=== PATIENT | male | born 1965 | race American Indian/Alaskan Native ===

== ENCOUNTER 2017-08-25 18:46 | Emergency (ER) | payer SELFPAY ==
[2017-08-25 22:33] VITALS: BP 105/69
[2017-08-26] MEDS ORDERED: NORCO 5/325 PO ONE (00:10)
[2017-08-26] MEDS ORDERED: NORCO 5/325 ONE (00:10)
--- NOTE | 2017-08-26 00:28 | Emergency Department Report ---
ED ENT HPI - General Chief complaint: Dental/Oral Stated complaint: MOUTH SWOLLEN/PAIN Time Seen by Provider: 08/26/17 00:23 Source: patient Mode of arrival: Ambulatory Limitations: No Limitations - History of Present Illness Initial comments: 51-year-old -Polish male comes in complaining about having dental pain with right facial swelling for 4 days. Patient denies any drooling. He reports he is taking Aleve which she reports has helped but he ran out of Aleve. Patient denies any fever chills no nausea no vomiting. Patient reports that he has no dentist at this time. He reports he is aware that he has some bad teeth in his mouth. He isn't currently has no allergies to medicines dictation takes no medications on a daily basis. MD complaint: tooth pain -: days(s) (4) Location: tooth # (3) Severity: severe Severity scale (0 -10): 8 Quality: aching, other (throbby) Consistency: constant Improves with: NSAID Worsens with: eating Context- Dental: history of dental caries, poor dental care Associated Symptoms: gum swelling, toothache - Related Data Previous Rx's Medication Instructions Recorded Last Taken Type Chlorhexidine Mouthwash [Peridex] 3 ml MM BID #1 bottle 08/26/17 Unknown Rx Naproxen [EC-Naprosyn] 500 mg PO BID #30 tablet. 08/26/17 Unknown Rx Penicillin Vk [Veetids TAB] 250 mg PO QID #40 tablet 08/26/17 Unknown Rx Allergies Allergy/AdvReac Type Severity Reaction Status Date / Time No Known Allergies Allergy Verified 08/26/17 00:23 ED Dental HPI - General Chief complaint: Dental/Oral Stated complaint: MOUTH SWOLLEN/PAIN Time Seen by Provider: 08/26/17 00:23 Source: patient Mode of arrival: Ambulatory Limitations: No Limitations - Related Data Previous Rx's Medication Instructions Recorded Last Taken Type Chlorhexidine Mouthwash [Peridex] 3 ml MM BID #1 bottle 08/26/17 Unknown Rx Naproxen [EC-Naprosyn] 500 mg PO BID #30 tablet. 08/26/17 Unknown Rx Penicillin Vk [Veetids TAB] 250 mg PO QID #40 tablet 08/26/17 Unknown Rx Allergies Allergy/AdvReac Type Severity Reaction Status Date / Time No Known Allergies Allergy Verified 08/26/17 00:23 ED Review of Systems ROS: Stated complaint: MOUTH SWOLLEN/PAIN Other details as noted in HPI ENT: dental pain ED Past Medical Hx - Past Medical History Previous Medical History?: No - Surgical History Past Surgical History?: No - Social History Smoking Status: Current Every Day Smoker Substance Use Type: Alcohol - Medications Home Medications: Home Medications Medication Instructions Recorded Confirmed Last Taken Type Chlorhexidine Mouthwash [Peridex] 3 ml MM BID #1 bottle 08/26/17 Unknown Rx Naproxen [EC-Naprosyn] 500 mg PO BID #30 tablet. 08/26/17 Unknown Rx Penicillin Vk [Veetids TAB] 250 mg PO QID #40 tablet 08/26/17 Unknown Rx ED Physical Exam - General Limitations: No Limitations - Expanded ENT Exam Expanded Teeth exam: Present: dental caries, dental tenderness # (3), gingival enlargement ED Course Vital Signs 08/25/17 08/25/17 18:59 22:31 Temperature 98.8 F 98.6 F Pulse Rate 86 70 Respiratory 18 14 Rate Blood Pressure 109/67 Blood Pressure 105/69 [Left] O2 Sat by Pulse 97 100 Oximetry ED Medical Decision Making - Medical Decision Making Patient has been evaluated for this provider fast track. Patient has been given Anderson 5/325 for pain management. Patient will be discharged with penicillin VK ibuprofen 800 mg Critical care attestation.: If time is entered above; I have spent that time in minutes in the direct care of this critically ill patient, excluding procedure time. ED Disposition Clinical Impression: Abscess, dental, Gingivitis, chronic Disposition: DC-01 TO HOME OR SELFCARE Is pt being admited?: No Does the pt Need Aspirin: No Condition: Stable Instructions: Gingivitis (ED), Trench Mouth (ED), Dental Abscess (ED) Additional Instructions: Complete antibiotics as prescribed and mouthwash and pain medicine as prescribed. Please follow-up with the dentist I have listed several below. Prescriptions: Chlorhexidine Mouthwash [Peridex] 3 ml MM BID #1 bottle Naproxen [EC-Naprosyn] 500 mg PO BID #30 tablet. Penicillin Vk [Veetids TAB] 250 mg PO QID #40 tablet Referrals: PRIMARY CARE, [Primary Care Provider] - 3-5 Days [facility] [Outside] - 3-5 Days [facility] [Outside] - 3-5 Days [facility] [Outside] - 3-5 Days [facility] [Provider Group] - 3-5 Days Forms: Work/School Release Form(ED)
== END 2017-08-26 00:35 | disposition home or self-care (01) ==
LOC: ED 18:46
DX: K04.7 Periapical abscess without sinus (principal); K05.10 Chronic gingivitis, plaque induced; F17.200 Nicotine dependence, unspecified, uncomplicated
CPT/HCPCS: 99282

== ENCOUNTER 2020-12-04 23:31 | Emergency (ER) | payer OTHER ==
[2020-12-04 23:44] VITALS: BP 119/76
[2020-12-05] MEDS ORDERED: IBUPROFEN 800 MG TAB PO ONE
--- NOTE | 2020-12-05 | Emergency Department Report ---
ED Back Pain/Injury HPI - General Chief Complaint: Back Pain/Injury Stated Complaint: LOWER BACK PAIN Time Seen by Provider: 12/04/20 23:41 Source: patient Limitations: No Limitations - History of Present Illness Initial Comments: Patient presents secondary to lower back pain. He works at the [employer]. He was at home and moving a bag off of a shelf. He states that he twisted and lifted the bag at the same time. He felt a pull in his left lower back. He has had increasing pain since that time. Pain is isolated to the left lower back hip. It does not radiate or migrate. There is no chest pain. He has no shortness of breath. There is no abdominal pain associate with this. Patient denies any paresthesias in the extremity. He denies saddle anesthesia. There is not been any weakness noted. He came in for evaluation treatment due to the pain. It is a constant aching pain that is worse with palpation. - Related Data Previous Rx's Medication Instructions Recorded Last Taken Type Chlorhexidine Mouthwash [Peridex] 3 ml MM BID #1 bottle 08/26/17 Unknown Rx Penicillin Vk [Veetids TAB] 250 mg PO QID #40 tablet 08/26/17 Unknown Rx Metaxalone [Skelaxin] 800 mg PO TID #10 tablet 12/04/20 Unknown Rx Naproxen [EC-Naprosyn] 500 mg PO BID #30 tablet. 12/04/20 Unknown Rx Allergies Allergy/AdvReac Type Severity Reaction Status Date / Time No Known Allergies Allergy Verified 08/26/17 00:23 ED Review of Systems ROS: Stated complaint: LOWER BACK PAIN Other details as noted in HPI Comment: All other systems reviewed and negative Constitutional: denies: fever Eyes: denies: vision change ENT: denies: throat pain Respiratory: denies: cough Cardiovascular: denies: chest pain Endocrine: denies: unexplained weight loss Gastrointestinal: denies: abdominal pain Genitourinary: denies: dysuria Musculoskeletal: as per HPI Skin: denies: rash Neurological: denies: numbness, paresthesias Hematological/Lymphatic: denies: easy bruising ED Past Medical Hx - Past Medical History Previous Medical History?: No - Surgical History Past Surgical History?: No Additional Surgical History: L knee - Social History Smoking Status: Current Every Day Smoker (We discussed tobacco cessation x3 minutes) Substance Use Type: Alcohol - Medications Home Medications: Home Medications Medication Instructions Recorded Confirmed Last Taken Type Chlorhexidine Mouthwash [Peridex] 3 ml MM BID #1 bottle 08/26/17 Unknown Rx Penicillin Vk [Veetids TAB] 250 mg PO QID #40 tablet 08/26/17 Unknown Rx Metaxalone [Skelaxin] 800 mg PO TID #10 tablet 12/04/20 Unknown Rx Naproxen [EC-Naprosyn] 500 mg PO BID #30 tablet. 12/04/20 Unknown Rx ED Physical Exam - General Limitations: No Limitations, Other (Pulse ox noted and normal) General appearance: alert, in no apparent distress - Head Head exam: Present: atraumatic, normocephalic - Eye Eye exam: Present: normal appearance, EOMI. Absent: scleral icterus - ENT ENT exam: Present: normal exam, normal orophraynx - Neck Neck exam: Present: normal inspection. Absent: meningismus - Respiratory Respiratory exam: Present: normal lung sounds bilaterally. Absent: respiratory distress - Cardiovascular Cardiovascular Exam: Present: regular rate, normal rhythm - GI/Abdominal GI/Abdominal exam: Present: soft. Absent: distended, pulsatile mass - Extremities Exam Extremities exam: Present: normal capillary refill. Absent: calf tenderness - Back Exam Back exam: Present: paraspinal tenderness (Left lumbar area), other (Negative straight leg raise). Absent: CVA tenderness (R), CVA tenderness (L) - Neurological Exam Neurological exam: Present: alert, oriented X3, CN II-XII intact, normal gait, reflexes normal. Absent: motor sensory deficit - Psychiatric Psychiatric exam: Present: normal affect, normal mood - Skin Skin exam: Present: warm, dry ED Course Vital Signs 12/04/20 23:38 Temperature 97.7 F Pulse Rate 84 Respiratory 19 Rate Blood Pressure 119/76 O2 Sat by Pulse 100 Oximetry - Reevaluation(s) Reevaluation #1: 12/05/20 01:06 Patient was discharged ED Medical Decision Making - Medical Decision Making Patient presented secondary to back pain. This was musculoskeletal in nature and related to lifting. There is no midline tenderness, step-off, deformity. There is no cord injury or symptoms that would suggest cord injury. He did not have blunt trauma suggestive of acute fracture. There was no abdominal pain or tenderness. I do not believe this represents referred pain from a AAA. As there is no saddle anesthesia, I do not believe this represents cauda equina. He has no history of fever or IV drug abuse that would suggest epidural abscess. Critical Care Time: No Critical care attestation.: If time is entered above; I have spent that time in minutes in the direct care of this critically ill patient, excluding procedure time. ED Disposition Clinical Impression: Acute lumbar myofascial strain Disposition: HOME / SELF CARE / HOMELESS Is pt being admited?: No Condition: Stable Instructions: Muscle Strain, [id number], How to Use Cold Therapy Additional Instructions: ALTERNATE ICE AND HEAT. LIMIT LIFTING. LIFT WITH YOUR LEGS. RETURN FOR PROBLEMS. SEE YOUR DOCTOR OR THE REFERRAL DOCTOR FOR RECHECK. Prescriptions: Naproxen [EC-Naprosyn] 500 mg PO BID #30 tablet. Metaxalone [Skelaxin] 800 mg PO TID #10 tablet Referrals: PRIMARY MD TEOFILO [Primary Care Provider] - 3-5 Days RUTH COTE MD [Staff Physician] - 3-5 Days Forms: Work/School Release Form(ED)
== END 2020-12-05 00:41 | disposition home or self-care (01) ==
LOC: ED 23:31
DX: S39.012A Strain of muscle, fascia and tendon of lower back, initial encounter (principal); F17.200 Nicotine dependence, unspecified, uncomplicated; Z72.89 Other problems related to lifestyle; Z79.899 Other long term (current) drug therapy; X50.1XXA Overexertion from prolonged static or awkward postures, initial encounter; Y93.89 Activity, other specified; Y92.89 Other specified places as the place of occurrence of the external cause; Y99.8 Other external cause status
CPT/HCPCS: 99282